=== PATIENT | male | born 1965 | race Caucasian/White ===

== ENCOUNTER 2018-04-04 20:20 | Inpatient (IN) | payer BC ==
[~2018-04-04] VITALS: Ht 182.9 cm; Wt 103.0 kg
[~2018-04-04 20:20] MED LIST: CHLO10CA PO; LORA-259 PO
[2018-04-04 20:35] VITALS: BP 134/97
--- NOTE | 2018-04-04 20:35 | NUR ---
SUCCESSFUL INTUBATION WAS DONE AT THIS TIME WITH 7.5 ETT 23 AT THE LIP. ETCO2 HAD POSITIVE COLOR CHANGE AND AUDIBLE BILATERAL BREATH SOUNDS HEARD. PT IS ON AC 12, 500 100% +5. SUCTION MODERATE AMOUNT OF THICK FROTHY WHITE SECRETIONS. VENT PLUGGED INTO RED OUTLET WITH AMBU BAG AT BEDSIDE. ALARMS ARE AUDIBLE. NO RESP DISTRESS AT THIS TIME. WILL CONT TO MONITOR PT. Addendum: 04/04/18 at 2108 by SERENA COLEMAN RT Amended: Links added.
--- NOTE | 2018-04-04 20:50 | NUR ---
CALLED POSION CONTROL. "WE WILL FOLLOW UP"
--- NOTE | 2018-04-04 20:54 | NUR ---
ADMITTED OBTUNDED/UNRESPONSIVE . 2034iNTUBATED BY DR. MARIE ,PRE MEDICATED WITH 30 MG. ETOMIDATE AND 100 MG. SUCCYNOLCHOLINE.OET 7.5 @ 23 CM @ LIPS. PLACED ON AC=12,QR=741,100% FIO2,PEEP=5
[2018-04-04] MEDS ORDERED: PROPOFOL 100 ML ONE (21:01)
[2018-04-04 21:14] LABS: BASOPHILS # (AUTO) 0.1 /CMM (0.0-0.2); BASOPHILS % (AUTO) 1.3 % (0.0-2.0); EOSINOPHILS % (AUTO) 2.5 % (0.0-6.0); HEMATOCRIT 41 % (39-51); HEMOGLOBIN 14.2 g/dL (13.5-17.5); LYMPHOCYTES # (AUTO) 2.4 /CMM (0.8-4.8); LYMPHOCYTES % (AUTO) 38.9 % (20.0-44.0); MEAN CORPUSCULAR HGB CONC 35 g/dl (31.0-36.0); MEAN CORPUSCULAR VOLUME 100 fL (80-96); MONOCYTES # (AUTO) 0.5 /CMM (0.1-1.30); MONOCYTES % (AUTO) 7.9 % (2.0-12.0); NEUTROPHILS # (AUTO) 3.1 /CMM (1.8-8.9); NEUTROPHILS % (AUTO) 49.4 % (43.0-81.0); PLATELET COUNT (AUTO) 247 /CMM (150-450); RED BLOOD CELL COUNT(AUTO) 4.09 MIL/uL (4.5-6.0); WHITE BLOOD COUNT (AUTO) 6.3 K/uL (4.3-11.0)
[2018-04-04 21:18] LABS: CALCIUM, SERUM 8.8 mg/dL (8.5-10.1); POTASSIUM 3.8 mmol/L (3.5-5.1)
[2018-04-04 21:25] LABS: ALBUMIN 3.3 g/dL (3.4-5.0); BILIRUBIN,DIRECT 0.1 mg/dL (0.0-0.2); BILIRUBIN,TOTAL 0.4 mg/dL (0.2-1.0); TOTAL PROTEIN, SERUM 7.3 g/dL (6.4-8.2)
[2018-04-04 21:27] LABS: SALICYLATE 2.5 mg/dL (2.8-20.0)
[2018-04-04] MEDS ORDERED: PROPOFOL 100 ML IV PRN (21:30)
[2018-04-04 21:34] LABS: THYROID STIMULATING HORMONE 2.713 uIU/mL (0.358-3.74)
[2018-04-04 22:19] LABS: APPEARANCE,URINE Clear (CLEAR); BILIRUBIN,URINE Negative (NEGATIVE); BLOOD, URINE Negative Ery/uL (NEGATIVE); COLOR,URINE Yellow (YELLOW); KETONES,URINE Negative (NEGATIVE); LEUKOCYTE ESTERASE ,URINE Negative (NEGATIVE); NITRITE, URINE Negative (NEGATIVE); PH,URINE 6.5 (5.0-8.0); PROTEIN,URINE Negative (NEGATIVE); UGLUCOSE 100 MG/DL mg/dL (NEGATIVE); UROBILINOGEN,URINE 0.2 EU/dL (0.2)
[2018-04-04 22:59] LABS: ABG BASE EXCESS -3.8 mmol/L; ABG OXYGEN SATURATION 98.9 % (92.0-98.5); ABG PCO2 34.5 mmHg (35.0-45.0); ABG PH 7.389 (7.350-7.450); ABG PO2 223.3 mmHg (75.0-100.0); AaDO2 455.2 mmHg; COHb 0.9 % (0.5-1.5); MetHb 0.7 % (0.0-1.5); O2Hb 97.3 % (94.0-97.0); PEEP,BG 5 cm H2O; SITE, ABG Right Radial; VENT MODE, BG AC 12; VT, ABG 500 mL
[2018-04-04 23:00] VITALS: BP 130/84
[2018-04-04] MEDS ORDERED: IV NS 0.9% 1,000 ML IV PRN ×2 (23:19→23:38)
[2018-04-04] MEDS ORDERED: MAGNESIUM HYDROXIDE 30 ML UDC PO PRN (23:30)
[2018-04-04] MEDS ORDERED: MAG HYDROX/AL HYDROX/SIMETH 30 ML UDC PO PRN (23:30)
[2018-04-04] MEDS ORDERED: ONDANSETRON HCL/PF 4 MG/2 ML VIAL IVP PRN (23:30)
[2018-04-04] MEDS ORDERED: Z GUARD REMEDY 2 OZ OINT TP PRN (23:30)
--- NOTE | 2018-04-04 23:43 | NUR ---
SPOKE TO POISON CONTROL GAVE SET OF VITALS AND TOXICOLOGY INFO OVER PHONE
--- NOTE | 2018-04-04 23:48 | NUR ---
ELECTRONIC COMPONENTS ASSEMBLER: RECEIVED S/P ORALLY INTUBATED PT FROM ER FOR DX OF AMS. VENT SETTINGS ORDERED AND TOLERATING WELL. SEDATED ON DIPRIVAN DRIP AT 50MCG/KG/MIN, WITHDRAWS TO PAIN STIMULI. NO S/S OF IV INFILTRATION. SR ON GAS CONTROLLER. AFEBRILE. OGT CLAMPED AT THIS TIME. PER ER REPORT, HAD EPISODE OF SMALL AMT. OF YELLOWISH EMESIS ENROUTE TO ICU. HOB AT 35 DEGREES. F/C PATENT AND INTACT DRAINING LARGE AMT. OF YELLOW URINE TO GRAVITY. ALSO RECEIVED WT BILAT. SOFT WRIST RESTRAINTS TO PREVENT SELF EXTUBATION. SKIN AND CIRCULATION WNL. SAFETY AND ASPIRATION PRECAUTION NOTED. WILL CONTINUE TO MONITOR.
[2018-04-04] MEDS ORDERED: NALOXONE HCL 0.4 MG/ML AMPUL IV STA (23:56)
[2018-04-04 23:58] VITALS: BP 127/81
[2018-04-05] VITALS (62 sets, daily range): BP systolic 66–203; BP diastolic 34–97
[2018-04-05] MEDS ORDERED: IV NS 0.9% 1,000 ML BAG IV PRN
[2018-04-05] MEDS ORDERED: ENOXAPARIN SODIUM 40 MG/0.4 ML DISP.SYRIN SQ ONE
[2018-04-05] MEDS ORDERED: PROPOFOL 100 ML IV PRN
--- NOTE | 2018-04-05 00:08 | NUR ---
FRENCH FOLDER: CALLED POISON CONTROL AT [phone] AND SPOKE WT INITA. RELAYED CURRENT VITAL SIGNS AND ADMISSION ORDERS AND SAID TO CONTINUE SUPPORTIVE CARE.
--- NOTE | 2018-04-05 00:15 | NUR ---
RAG WILLOW OPERATOR: VENKAT CALLED AND UPDATED PT. STATUS AND SAID SHE WILL BRING LIST OF MED IN A.M.
[2018-04-05] MEDS ORDERED: NALOXONE HCL 0.4 MG/ML AMPUL ONE (00:16)
--- NOTE | 2018-04-05 00:30 | NUR ---
MANAGER SAFE: JHON HART WAS ASKED IF OK TO CONNECT OGT TO LIS PT HAD EPISODE OF EMESIS PER E.R. EN ROUTE TO ICU. MAKE UP OPERATOR HELPER SAID AGREED. NOTED AND CARRIED OUT.
[2018-04-05] MEDS: PROPOFOL 100 ML IV PRN ×4 (00:45→09:41)
--- NOTE | 2018-04-05 00:45 | NUR ---
SECURITY SYSTEM TECHNICIAN: RECEIVED ORDER FROM JHON HART TO GIVE NS X 1L BOLUS FOR LOW BP.
[2018-04-05] MEDS ORDERED: IV NS 0.9% 1,000 ML IV ONE ×2 (01:00→02:00)
[2018-04-05] MEDS ORDERED: Thiamine 100 MG/ML VIAL ONE (01:21)
[2018-04-05] MEDS: Thiamine 100 MG in IV D5W 50 ML IV SCH (01:23)
--- NOTE | 2018-04-05 01:40 | NUR ---
LEAD SOFTWARE ARCHITECT: NOTIFIED JHON HART OF STILL LOW BP AFTER FIRST NS BOLUS WT NEW ORDER TO GIVE ANOTHER 1L. NOTED AND CARRIED OUT.
--- NOTE | 2018-04-05 02:45 | NUR ---
JACK MACHINE OPERATOR: 2ND NS BOLUS ADMINISTERED WT GOOD EFFECT (SBP ABOVE 90). WILL CONTINUE TO MONITOR.
[2018-04-05] MEDS: LORAZEPAM INJ 2 MG/ML VIAL IV PRN ×3 (03:35→20:46)
[2018-04-05 05:00] LABS: BASOPHILS # (AUTO) 0.1 /CMM (0.0-0.2); BASOPHILS % (AUTO) 1.7 % (0.0-2.0); EOSINOPHILS % (AUTO) 2.9 % (0.0-6.0); HEMATOCRIT 37 % (39-51); HEMOGLOBIN 12.8 g/dL (13.5-17.5); LYMPHOCYTES # (AUTO) 1.7 /CMM (0.8-4.8); LYMPHOCYTES % (AUTO) 35.9 % (20.0-44.0); MEAN CORPUSCULAR HGB CONC 35 g/dl (31.0-36.0); MEAN CORPUSCULAR VOLUME 100 fL (80-96); MONOCYTES # (AUTO) 0.3 /CMM (0.1-1.30); MONOCYTES % (AUTO) 6.7 % (2.0-12.0); NEUTROPHILS # (AUTO) 2.4 /CMM (1.8-8.9); NEUTROPHILS % (AUTO) 52.8 % (43.0-81.0); PLATELET COUNT (AUTO) 234 /CMM (150-450); WHITE BLOOD COUNT (AUTO) 4.6 K/uL (4.3-11.0)
[2018-04-05 05:07] LABS: ALBUMIN 2.8 g/dL (3.4-5.0); BILIRUBIN,DIRECT 0.1 mg/dL (0.0-0.2); BILIRUBIN,TOTAL 0.3 mg/dL (0.2-1.0); CALCIUM, SERUM 7.6 mg/dL (8.5-10.1); CREATININE 0.8 mg/dL (0.6-1.3); MAGNESIUM 1.8 mg/dL (1.8-2.4); PHOSPHORUS 3.7 mg/dL (2.5-4.9); POTASSIUM 3.9 mmol/L (3.5-5.1); TOTAL PROTEIN, SERUM 6.2 g/dL (6.4-8.2)
--- NOTE | 2018-04-05 06:20 | NUR ---
HYDROCRANE OPERATOR: CONTINUE ON IVF NS AT 125ML/HR AND DIPRIVAN AT 70MCG/KG/MIN. GIVEN ATIVAN X 1 DURING THE SHIFT WT GOOD EFFECT. SAFETY PRECAUTION NOTED AT ALL TIMES.
--- NOTE | 2018-04-05 07:15 | NUR ---
ASSUMED CARE OF PT AT THIS TIME. REPORT RECEIVED FROM TAMIE LANG FOR KARAN. PT IN BED 253, INTUBATED ON VENT AT ORDERED SETTINGS, SEDATED WITH PROPOFOL DRIP RUNNING AT 80MCG/KG/HR. PERRLA. SHOWING SR ON TELE. LAC AND RAC PIVS PATENT, NO S/SX INFECTION. GODFREY CATH IN PLACE, DRAINING CLEAR YELLOW URINE TO GRAVITY. NGT TO LOW INTERMITTENT SUCTION. VELMA SOFT WRIST RESTRAINTS ON FOR PREVENTION OF SELF-EXTUBATION SECONDARY TO AGITATION. SKIN WARM DRY, INTACT.
--- NOTE | 2018-04-05 08:04 | NUR ---
RT NOTE PT RCVD ORALLY INTUBATED VIA ETT #7.5, 23CM @ THE LIP ON THE VENT WITH NOTED SETTINGS, AC 12,500,40% PEEP 5. BILATERAL B/S HEARD ON AUSCULTATION. PT IS SEDATED. SUCTIONED LARGE AMOUNT OF FROTHY SECRETIONS . NO RESPIRATORY DISTRESS NOTED AT THIS TIME. ALARMS ARE SET AND AUDIBLE, VENT PLUGGED INTO RED OUTLET. AMBU BAG BEDSIDE. WILL CONTINUE TO MONITOR CLOSELY Addendum: 04/05/18 at 0956 by EDWARD MCKINNON RT PT FIO2 IS CURRENTLY 60% INCORRECT DOCUMENTATION
[2018-04-05] MEDS: IV NS 0.9% 1,000 ML IV PRN ×2 (08:26→21:31)
[2018-04-05] MEDS: FOLIC ACID 1 MG TABLET PO SCH (08:26)
[2018-04-05] MEDS: PANTOPRAZOLE 40 MG VIAL IV SCH (08:26)
--- NOTE | 2018-04-05 08:51 | NUR ---
DR LANG AT BEDSIDE
--- NOTE | 2018-04-05 08:57 | NUR ---
DR SHEIKH AT BEDSIDE
[2018-04-05] MEDS ORDERED: THIAMINE HCL 100 MG TABLET PO SCH (09:00)
--- NOTE | 2018-04-05 09:00 | NUR ---
PT CURRENTLY ON 85MCG/KG/MIN PROPOFOL TO MAINTAIN ADEQUATE SEDATION. PER DR LANG, GRADUALLY DECREASE PROPOFOL IN EFFORTS TO PREPARE PATIENT FOR SPONTANEOUS BREATHING TRIAL. Addendum: 04/05/18 at 0930 by NATIVIDAD ANNE RN RATE DECREASED TO 80 MCG/KG/MIN
--- NOTE | 2018-04-05 09:30 | NUR ---
PT REMAINS SEDATED ON 80MCG/KG/MIN, RATE DECREASED TO 75MCG/KG/MIN
[2018-04-05] MEDS ORDERED: ETOMIDATE 2 MG/ML VIAL ONE (09:52)
--- NOTE | 2018-04-05 10:25 | NUR ---
RT NOTE PLACED PT ON SIMV DUE TO DR ORDERS, WILL MONITOR CLOSELY ABG TO FOLLOW
[2018-04-05] MEDS: ACETAMINOPHEN 325 MG TABLET PO PRN (10:48)
--- NOTE | 2018-04-05 10:50 | NUR ---
PT FEELS HOT TO THE TOUCH AT THIS TIME. TEMP ZXRAW=031.8 AXILLARY. MEDICATED WITH TYLENOL 650MG VIA NGT; SUCTION TURNED OFF.
--- NOTE | 2018-04-05 10:55 | NUR ---
UPDATED PTS , VENKAT, OF PTS STATUS AND PLAN OF CARE. VENKAT STATES SHE WILL BE IN TO VISIT IN A FEW HOURS.
[2018-04-05 11:20] LABS: ABG BASE EXCESS -1.5 mmol/L; ABG PCO2 31.5 mmHg (35.0-45.0); ABG PH 7.452 (7.350-7.450); ABG PO2 82.2 mmHg (75.0-100.0); AaDO2 166.8 mmHg; COHb 0.3 % (0.5-1.5); MetHb 0.6 % (0.0-1.5); O2Hb 95.1 % (94.0-97.0); PEEP,BG 5 cm H2O; SITE, ABG Left Radial; VENT MODE, BG SIMV PS 12; VT, ABG 500 mL
--- NOTE | 2018-04-05 11:30 | NUR ---
ABG RESULTS REVIEWED BY DR LANG. RECEIVED VERBAL ORDER FOR EXTUBATION LONG PT IS OFF PROPOFOL. RT EDWARD NOTIFIED.
--- NOTE | 2018-04-05 11:50 | NUR ---
RT NOTE PER MD ORDER AND POST ABG RESULTS, EXTUBATED PT, PLACED PT ON NASAL CANULA AT 4 LPM WILL TITRATE, BILATERAL B/S HEARD PT AWAKE ALERT, NO DISTRESS NOTED, WILL MONITOR CLOSELY
--- NOTE | 2018-04-05 11:56 | NUR ---
PT TOLERATING WELL S/P EXTUBATION, SATURATING 97% ON 4LPM VIA NC. PT IS A/OX4, ABLE TO MAKE ALL NEEDS KNOWN AND FOLLOW COMMANDS. PT REQUESTED EPIFANIO RUSH BE D/C'D AND IS CURRENTLY USING A URINAL. UPDATED PT'S , VENKAT. Addendum: 04/05/18 at 1312 by NATIVIDAD ANNE RN NG TUBE REMOVED AT THE SAME TIME AT EXTUBATION, TIP INTACT AND TOLERATED WELL.
--- NOTE | 2018-04-05 12:42 | NUR ---
AT BEDSIDE. PT VOIDED IN URINAL. VSS.
--- NOTE | 2018-04-05 13:29 | NUR ---
SPOKE WITH POISON CONTROL PHARMACIST JAVIER, UPDATED ON PT CONDITION. NO NEW RECOMMENDATIONS FROM POISON CONTROL.
--- NOTE | 2018-04-05 13:32 | NUR ---
OK PER DR SHEIKH TO PLACE PT ON REGULAR DIET TO ADVANCE TOLERATED. PT TOLERATING PO INTAKE OF WATER AND ICE CHIPS, GIVEN JELLO. PT REPORTS THROAT PAIN, ADVISED PT AND TO CONTINUE SOFT FOODS AT THIS TIME.
--- NOTE | 2018-04-05 15:31 | NUR ---
PT C/O CRAMPING IN LEGS AND BACK PAIN. PT REQUESTING TO SIT IN CHAIR AT THE BEDSIDE. ASSISTED WITH 1 ASSIST FROM BED TO CHAIR, TOLERATED WELL. CONTACTED DR SHEIKH REGARDING PAIN MANAGEMENT PRN TYLENOL IS NOT DUE YET AND PT'S REQUESTS NO NARCOTICS. RECEIVED TELE ORDER FOR MOTRIN 600MG TID PRN.
--- NOTE | 2018-04-05 15:55 | NUR ---
2L O2 VIA NC REMOVED WHILE PT WAS SITTING IN CHAIR AT BEDSIDE. TOLERATING WITH SAT 96% OR GREATER.
[2018-04-05] MEDS: IBUPROFEN 600 MG TABLET PO PRN ×2 (15:59→22:40)
--- NOTE | 2018-04-05 16:44 | NUR ---
PT REPORTED FEELING SHAKY AND ANXIOUS. ATIVAN 1MG IV PRN ADMINISTERED ORDERED. RESTING QUIETLY IN BED, TOLERATING PO INTAKE OF JUICE, WATER, AND JELLO. VSS, NO SUPPLEMENTAL O2 REQUIRED TO MAINTAIN SAT ABOVE 96%
--- NOTE | 2018-04-05 17:51 | NUR ---
Patient lives locally with spouse. Prior to admission, he was ambulatory and independent with adl's. Has hx of alcohol and opioid abuse and recently was released from a treatment center. Patient is now admitted to ICU with possible overdose on clonidine and intoxication. Will refer to social human services assistants for psychosocial eval and substance abuse resources. Addendum: 04/05/18 at 1752 by KUNAL KEE RN Amended: Links added.
--- NOTE | 2018-04-05 18:22 | NUR ---
RESTING QUIETLY, VSS, NAD NOTED. DOZING INTERMITTENTLY IN BED WITH AT BEDSIDE.
--- NOTE | 2018-04-05 19:30 | NUR ---
ICU/RN. RECEIVED PT AWAKE ALERT AND OX3.ON ROOM AIR,RESP REGULAR AND EVEN,SATURATION =94%.C/O SORE THROAT AND STOMACH ACHE.WANTING ATIVAN BUT EXPLAINED TO PT THAT MED IS NOT DUE,STATES"I'M A LITTLE BIT SHAKY".
[2018-04-05] MEDS ORDERED: ENOXAPARIN SODIUM 40 MG/0.4 ML DISP.SYRIN SQ SCH (22:00)
[2018-04-06] VITALS (16 sets, daily range): BP systolic 119–158; BP diastolic 66–103
[2018-04-06] MEDS: IBUPROFEN 600 MG TABLET PO PRN (00:09)
--- NOTE | 2018-04-06 00:09 | NUR ---
ICU/RN GIVEN NORCO5/325 PO FOR C/O EXCRUCIATING BACK PAIN(CHRONIC)ACCORDING TO PATIENT.
[2018-04-06] MEDS: Thiamine 100 MG in IV D5W 50 ML IV SCH (00:12)
--- NOTE | 2018-04-06 01:40 | NUR ---
ICU/RN. PT ASLEEP,RESPIRATIONS REGULAR AND EVEN.MONITOR SHOWS SINU RHYTHM.
[2018-04-06] MEDS: LORAZEPAM INJ 2 MG/ML VIAL IV PRN (03:14)
[2018-04-06] MEDS: ACETAMINOPHEN 325 MG TABLET PO PRN (04:22)
[2018-04-06] MEDS: HYDROCODONE/APAP 5/325MG 1 EACH TABLET PO PRN ×2 (04:28)
[2018-04-06] MEDS: IV NS 0.9% 1,000 ML IV PRN (06:47)
--- NOTE | 2018-04-06 07:03 | NUR ---
ICU/RN SLEPT WELL AFTER TYLENOL GIVEN.VITAL SIGNS STABLE.MAINTAINING SAT OF 93-97%.
--- NOTE | 2018-04-06 07:30 | NUR ---
INITIAL PT RESTING QUIETLY EASILY AROUSED VITAL SIGNS TAKEN STABLE MONITORED 66 NSR PT GIVEN BREAKFAST PT ON ROOM AIR NO DISTRESS AFTER EXTUBATION YESTERDAY AT 1600 ABG DONE STABLE. PT IN SEMI FOWLERS POSITION BED IN LOW POSITION CALL MURRAY NEXT TO PT WILL CONTINUE TO MONITOR
[2018-04-06] MEDS: PANTOPRAZOLE 40 MG VIAL IV SCH (07:47)
[2018-04-06 08:12] LABS: ABG BASE EXCESS 1.9 mmol/L; ABG OXYGEN SATURATION 94.4 % (92.0-98.5); ABG PCO2 36.6 mmHg (35.0-45.0); ABG PH 7.461 (7.350-7.450); ABG PO2 75.3 mmHg (75.0-100.0); AaDO2 30.6 mmHg; COHb 0.3 % (0.5-1.5); MetHb 0.7 % (0.0-1.5); O2Hb 93.5 % (94.0-97.0); SITE, ABG Left Radial; VENT MODE, BG Room Air
--- NOTE | 2018-04-06 08:13 | NUR ---
WOUND CARE CONSULT: PT NO LONGER INTUBATED AND IS INDEPENDENT WITH BED MOBILITY AND CONTINENT. SKIN IS INTACT. SOME PIGMENT IRREGULARITY NOTED TO RT SIDE OF BACK. CURRENT JOSE MANUEL SCORE IS 19. WILL SEE PRN.
[2018-04-06] MEDS: FOLIC ACID 1 MG TABLET PO SCH (08:55)
--- NOTE | 2018-04-06 10:17 | NUR ---
WOUND CARE: SKIN TEAR NOTED UNDER CHEST HAIR, PRESENT ON ADMISSION. PT STATES WAS FROM [facility] RECOMMENDATIONS MADE FOR WOUND CARE AND SKIN PROTECTION. DISCUSSED WITH NURSING STAFF. WILL SEE PRN. Addendum: 04/06/18 at 1018 by KENA REDD WNDNU Amended: Links added.
--- NOTE | 2018-04-06 10:56 | NUR ---
DISCHARGE PT DRESSED SELF BATHED USED BATH ROOM ALL PIV REMOVED WITH TIP INTACT PT HAS SKIN TEAR ON STERNIUM PLACED ZEROFORM AND MIPYLEX COVERING PT GIVEN DISCHARGE INSTRUCTIONS PT TO FOLLOW UP WITH REHAB
--- NOTE | 2018-04-06 11:41 | NUR ---
Social work note: Patient is a 52 year old male who was admitted to [facility] ICU after being found unconscious after consuming excessive amounts of alcohol. Per chart, patient has extensive history of ETOH abuse. Social work was requested to consult for ETOH abuse. Upon social work evaluation, patient was laying in bed and accompanied by his , Simin [[phone]]. Patient presented AxOx4 and verified all information of face sheet as correct. Per patient, he had been at an inpatient detox in [place], [place] and was released from there on 03/31/2018. Patient reports to have relapsed on Monday when he drank 1/5 of gin stating it was "too much". Patient report he doesn't remember anything as he thinks he "blacked out" and then just remembers waking up in the hospital choking from being intubated. Patient denies suicidal ideation and that he drank in an attempt to harm self. Patient states he has had problems with ETOH abuse for past 20 years. Patient drink of choice is gin. When asked how much patient typically consumes he stated "too much" followed by "a fifth". Patient longest period of sobriety was 2-3 years and patient states he accomplished that by attending AA regularly and having a sponsor. Patient also acknowledges that he is well-supported by friends and family. Upon discharge, patient states he will go to [facility] [[address] [place] [address] [address], [place] [address]; ] and attend their IOP evening program from 6-9pm Monday-Monday. 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 Patient also states that he will receive transportation to [facility] by his , Simin. Patient further states that he will supplement IOP program by attending AA and get a new sponsor. agricultural service worker facilitated conversation about safety planning regarding drinking. Per patient, he states he will call a friend or his sponsor when he feels like he wants to drink. Patient will be discharging this afternoon and return home [[address] [place] [address], [place] [address]; [phone]] with his , Simin, who will provide transportation. Per Simin and patient, patient will start IOP at [facility] this evening at 5:30pm. agricultural service worker called and left a voicemail for IOP coordinator, Pat, confirming patient will be starting IOP tonight. Per Simin, she would like face sheet updated to reflect that patient primary insurance is [employer] and his secondary is [employer]. agricultural service worker has made admitting department aware who will follow-up with Simin. Addendum: 04/06/18 at 1236 by JEMAL HEAD Additional information: agricultural service worker received confirmation from admitting that patient insurance has been updated and Simin has been made aware. agricultural service worker also offered substance abuse resources to patient and , however, both refused stating they are well-aware of available resources and equipped to locate new resources if needed.
--- NOTE | 2018-04-06 11:56 | NUR ---
PT LEFT WITH SPOUSE VENKAT WILL
[2018-04-07] MEDS ORDERED: THIAMINE HCL 100 MG TABLET PO SCH (09:00)
== END 2018-04-06 11:55 | disposition home or self-care (01) | DRG 917 ==
LOC: ER 20:23 → ICU 22:19
PROVIDERS: ADMIT Nurse Practitioner Acute Care; ATTEND Nurse Practitioner Acute Care
PROC: 5A1945Z Respiratory Ventilation, 24-96 Consecutive Hours (ICD-10-PCS; principal; 2018-04-04)
PROC: 0BH17EZ Insertion of Endotracheal Airway into Trachea, Via Natural or Artificial Opening (ICD-10-PCS; principal; 2018-04-04)
DX: T46.5X1A Poisoning by other antihypertensive drugs, accidental (unintentional), initial encounter (principal); G92 Toxic encephalopathy; J96.01 Acute respiratory failure with hypoxia; E87.1 Hypo-osmolality and hyponatremia; E46 Unspecified protein-calorie malnutrition; Y90.8 Blood alcohol level of 240 mg/100 ml or more; Y92.89 Other specified places as the place of occurrence of the external cause; F10.229 Alcohol dependence with intoxication, unspecified; T51.0X1A Toxic effect of ethanol, accidental (unintentional), initial encounter; F17.200 Nicotine dependence, unspecified, uncomplicated; Z79.899 Other long term (current) drug therapy; R74.0 Nonspecific elevation of levels of transaminase and lactic acid dehydrogenase [LDH]; E83.119 Hemochromatosis, unspecified; F32.9 Major depressive disorder, single episode, unspecified; E87.6 Hypokalemia
CPT/HCPCS: 31720; 36415; 36600; 70450-TC; 71045-TC; 76705-TC; 80048-TC; 80061-TC; 80076-TC; 80305; 81000-TC; 82803-TC; 83735-TC; 84100-TC; 84443-TC; 85025-TC; 87081-TC; 99082-TC; C9113; G0378; G0480; J1650; J2060; J2310; J3411; J3490; J7030; J7060

== ENCOUNTER 2018-06-30 17:36 | Emergency (ER) | payer BC ==
[~2018-06-30] VITALS: Ht 182.9 cm; Wt 108.9 kg
--- NOTE | 2018-06-30 17:54 | NUR ---
BIB SELF W C/O "Blurred vision, thirst,dry mouth x3wks went to cousins house and I checked my sugar it was 600". ALSO C/O DIZZINESS. TO ER BED 4, HOOKED TO MONITOR, CHANGED TO GOWN, AWAITING MD JOHNSON.
--- NOTE | 2018-06-30 18:10 | NUR ---
DR DUBOSE AT BEDSIDE FOR EVAL.
[2018-06-30 18:27] LABS: BASOPHILS % (AUTO) 0.7 % (0.0-2.0); HEMATOCRIT 42 % (39-51); HEMOGLOBIN 14.3 g/dL (13.5-17.5); LYMPHOCYTES # (AUTO) 1.4 /CMM (0.8-4.8); LYMPHOCYTES % (AUTO) 28.2 % (20.0-44.0); MEAN CORPUSCULAR HGB CONC 34 g/dl (31.0-36.0); MEAN CORPUSCULAR VOLUME 95 fL (80-96); MONOCYTES # (AUTO) 0.3 /CMM (0.1-1.30); MONOCYTES % (AUTO) 6.1 % (2.0-12.0); NEUTROPHILS # (AUTO) 3.2 /CMM (1.8-8.9); PLATELET COUNT (AUTO) 151 /CMM (150-450); WHITE BLOOD COUNT (AUTO) 5.1 K/uL (4.3-11.0)
[2018-06-30] MEDS ORDERED: IV NS 0.9% 1,000 ML BAG IV ONE (18:30)
[2018-06-30 18:43] LABS: ALBUMIN 3.8 g/dL (3.4-5.0); BILIRUBIN,DIRECT 0.2 mg/dL (0.0-0.2); BILIRUBIN,TOTAL 0.5 mg/dL (0.2-1.0); CALCIUM, SERUM 8.7 mg/dL (8.5-10.1); CREATININE 1.2 mg/dL (0.6-1.3); POTASSIUM 4.5 mmol/L (3.5-5.1); TOTAL PROTEIN, SERUM 7.1 g/dL (6.4-8.2)
--- NOTE | 2018-06-30 18:48 | NUR ---
BS 605, MADE AWARE
[2018-06-30] MEDS ORDERED: INSULIN REGULAR, HUMAN 100 UNIT/ML 10 ML VIAL ONE (18:57)
[2018-06-30] MEDS ORDERED: INSULIN REGULAR, HUMAN 100 UNIT/ML 10 ML VIAL SQ ONE (19:00)
--- NOTE | 2018-06-30 19:16 | NUR ---
REPORT GIVEN TO BERNICE LANG FOR KARAN
[2018-06-30 19:57] VITALS: BP 140/81
== END 2018-06-30 19:58 | disposition home or self-care (01) ==
LOC: ER 17:41
DX: R73.9 Hyperglycemia, unspecified (principal); I10 Essential (primary) hypertension; F41.9 Anxiety disorder, unspecified; F32.9 Major depressive disorder, single episode, unspecified; Z79.899 Other long term (current) drug therapy
CPT/HCPCS: 36415; 80048; 80076; 82962; 85025; 96360; 96372; 99283; J1815; J7030

== ENCOUNTER 2018-08-05 22:03 | Emergency (ER) | payer BC ==
[~2018-08-05] VITALS: Ht 185.4 cm; Wt 90.7 kg
--- NOTE | 2018-08-05 22:10 | NUR ---
ALLI GOSS FROM HOME. PATIENT RECENTLY HAD DRINK ALCOHOL. DENIES ANY DISCOMFORT AT THIS TIME. A/O X4. ABLE TO MAKE NEEDS KNOW. ASSISTED TO BED COMFORTABLY. FAMILY AT BEDSIDE.
[2018-08-05] MEDS ORDERED: ONDANSETRON HCL/PF 4 MG/2 ML VIAL ONE (22:34)
[2018-08-05] MEDS ORDERED: ONDANSETRON HCL/PF 4 MG/2 ML VIAL IVP ONE (23:00)
[2018-08-05] MEDS ORDERED: IV NS 0.9% 1,000 ML BAG IV ONE (23:00)
--- NOTE | 2018-08-05 23:00 | NUR ---
INITIATED IV LINE LAC G#20. BLOOD DRAWN BY PLATE CUTTER. INITIATED IVF ORDERED. ADMINISTERED ZOFRAN ORDERED.
[2018-08-05 23:05] LABS: BASOPHILS # (AUTO) 0.1 /CMM (0.0-0.2); BASOPHILS % (AUTO) 0.9 % (0.0-2.0); EOSINOPHILS % (AUTO) 3.3 % (0.0-6.0); HEMATOCRIT 41 % (39-51); HEMOGLOBIN 14.6 g/dL (13.5-17.5); LYMPHOCYTES # (AUTO) 2.6 /CMM (0.8-4.8); LYMPHOCYTES % (AUTO) 42.5 % (20.0-44.0); MEAN CORPUSCULAR HGB CONC 36 g/dl (31.0-36.0); MEAN CORPUSCULAR VOLUME 93 fL (80-96); MONOCYTES # (AUTO) 0.3 /CMM (0.1-1.30); MONOCYTES % (AUTO) 4.5 % (2.0-12.0); NEUTROPHILS % (AUTO) 48.8 % (43.0-81.0); PLATELET COUNT (AUTO) 162 /CMM (150-450); RED BLOOD CELL COUNT(AUTO) 4.42 MIL/uL (4.5-6.0); WHITE BLOOD COUNT (AUTO) 6.1 K/uL (4.3-11.0)
[2018-08-05 23:11] LABS: CALCIUM, SERUM 8.4 mg/dL (8.5-10.1); CREATININE 0.8 mg/dL (0.6-1.3); POTASSIUM 3.6 mmol/L (3.5-5.1)
[2018-08-05 23:19] LABS: ALBUMIN 3.8 g/dL (3.4-5.0); BILIRUBIN,DIRECT 0.1 mg/dL (0.0-0.2); BILIRUBIN,TOTAL 0.5 mg/dL (0.2-1.0); TOTAL PROTEIN, SERUM 7.2 g/dL (6.4-8.2)
--- NOTE | 2018-08-05 23:53 | NUR ---
VENKAT () CONTACT INFORMATION:
--- NOTE | 2018-08-06 01:58 | NUR ---
NOTED 800ML CLEAR YELLOW URINE OUTPUT. PATIENT BACK TO SLEEP ON BED. KEPT COMFORTABLE WITH WARM BLANKET. WILL CONTINUE TO MONITOR.
--- NOTE | 2018-08-06 02:38 | NUR ---
Patient is resting comfortably in bed with eyes closed. Easily aroused. VSS
--- NOTE | 2018-08-06 04:11 | NUR ---
Patient is resting comfortably in bed with eyes closed. Easily aroused. VSS
--- NOTE | 2018-08-06 05:20 | NUR ---
PT AAOX4. ABLE TO AMBULATE WITH STEADY GAIT. NO ACUTE DISTRESS NOTED AT THIS TIME.
--- NOTE | 2018-08-06 05:50 | NUR ---
Patient discharged to home in stable condition. Written and verbal after care instructions given. Patient verbalizes understanding of instruction. IV removed. Catheter intact and site benign. Pressure and 4x4 applied to site. No bleeding noted. Pt ambulatory with a steady gait. Instructed not to drive, left with .
[2018-08-06 05:51] VITALS: BP 114/75
== END 2018-08-06 05:52 | disposition home or self-care (01) ==
LOC: ER 22:05
DX: F10.129 Alcohol abuse with intoxication, unspecified (principal); R11.10 Vomiting, unspecified; E11.65 Type 2 diabetes mellitus with hyperglycemia; I10 Essential (primary) hypertension; Y90.8 Blood alcohol level of 240 mg/100 ml or more
CPT/HCPCS: 36415; 80048; 80076; 80307; 82962; 85025; 96361; 96374; 99283; J2405; J7030; G0480

== ENCOUNTER 2022-03-27 18:51 | Emergency (ER) | payer BC ==
[~2022-03-27] VITALS: Ht 185.4 cm; Wt 101.6 kg
[2022-03-27] MEDS ORDERED: IV NS 0.9% 1,000 ML BAG IV ONE (19:30)
[2022-03-27 19:55] LABS: CALCIUM, SERUM 8.6 mg/dL (8.5-10.1); CREATININE 0.8 mg/dL (0.6-1.3); POTASSIUM 3.8 mmol/L (3.5-5.1)
[2022-03-27 20:06] LABS: ALBUMIN 3.7 g/dL (3.4-5.0); BILIRUBIN,DIRECT 0.1 mg/dL (0.0-0.2); BILIRUBIN,TOTAL 0.3 mg/dL (0.2-1.0); TOTAL PROTEIN, SERUM 7.1 g/dL (6.4-8.2)
[2022-03-27 20:14] LABS: BASOPHILS % (AUTO) 0.8 % (0.0-2.0); EOSINOPHILS % (AUTO) 2.2 % (0.0-6.0); HEMATOCRIT 44 % (39-51); LYMPHOCYTES # (AUTO) 3.2 K/uL (0.8-4.8); LYMPHOCYTES % (AUTO) 51.5 % (20.0-44.0); MEAN CORPUSCULAR HGB CONC 34 g/dl (31.0-36.0); MEAN CORPUSCULAR VOLUME 100 fL (80-96); MONOCYTES # (AUTO) 0.4 K/uL (0.1-1.30); MONOCYTES % (AUTO) 6.8 % (2.0-12.0); NEUTROPHILS # (AUTO) 2.4 K/uL (1.8-8.9); NEUTROPHILS % (AUTO) 38.7 % (43.0-81.0); PLATELET COUNT (AUTO) 167 K/uL (150-450); RED BLOOD CELL COUNT(AUTO) 4.37 MIL/uL (4.5-6.0); WHITE BLOOD COUNT (AUTO) 6.2 K/uL (4.3-11.0)
--- NOTE | 2022-03-27 20:42 | NUR ---
IV removed. Catheter intact and site benign. Pressure and 4x4 applied to site. No bleeding noted.
--- NOTE | 2022-03-27 20:43 | NUR ---
Patient discharged to home in stable condition. Written and verbal after care instructions given. Patient verbalizes understanding of instruction.
[2022-03-27 20:49] VITALS: BP 148/96
== END 2022-03-27 20:50 | disposition home or self-care (01) ==
LOC: ER 19:07
DX: F10.129 Alcohol abuse with intoxication, unspecified (principal); Z71.41 Alcohol abuse counseling and surveillance of alcoholic; I10 Essential (primary) hypertension; Y90.9 Presence of alcohol in blood, level not specified
CPT/HCPCS: 99283; 96360; 85025; 80048; 80076; 36415; J7030

== ENCOUNTER 2022-05-06 15:54 | Emergency (ER) | payer BC ==
[~2022-05-06] VITALS: Ht 188 cm; Wt 111.1 kg
--- NOTE | 2022-05-06 16:05 | NUR ---
[id number] [facility], "DRANK COUPLE OF JUAN DANIEL BARRON, FAM MEMBER RECENTLY" "FELL INTO GRASS, NO HEAD TRAUMA", B
--- NOTE | 2022-05-06 16:29 | NUR ---
VENKAT [phone] " "
[2022-05-06 17:22] LABS: CREATININE 1.1 mg/dL (0.6-1.3); POTASSIUM 3.5 mmol/L (3.5-5.1)
--- NOTE | 2022-05-06 21:06 | NUR ---
Gabriela sylvester in [facility] - 05/06/22 at 2106 by PALAK Patient discharged to home in stable condition. Written and verbal after care instructions given. Patient verbalizes understanding of instruction. pI
--- NOTE | 2022-05-06 21:06 | NUR ---
Patient discharged to home in stable condition. Written and verbal after care instructions given. Patient verbalizes understanding of instruction.Picked up by . ambualted out of ED with steady gait.
[2022-05-06 21:07] VITALS: BP 107/69
== END 2022-05-06 21:07 | disposition home or self-care (01) ==
LOC: ER 15:56
DX: F10.129 Alcohol abuse with intoxication, unspecified (principal); I10 Essential (primary) hypertension; Y90.9 Presence of alcohol in blood, level not specified
CPT/HCPCS: 36415; 80048-TC

== ENCOUNTER 2022-05-17 19:34 | Inpatient (IN) | payer BC ==
[~2022-05-17] VITALS: Ht 185.4 cm; Wt 102.1 kg
--- NOTE | 2022-05-17 20:01 | NUR ---
BIBRA 89 FROM HOME C/O ETOH +TOOK UNKNOWN AMOUNT OF GABAPENTIN & TRAMADOL PER . BG 386 PER RA. pt to bed 13, placed on monitor, not in acute distress, denies sob. pending er provider akiko
[2022-05-17 21:25] LABS: BASOPHILS % (AUTO) 0.3 % (0.0-2.0); EOSINOPHILS % (AUTO) 0.9 % (0.0-6.0); HEMATOCRIT 47 % (39-51); HEMOGLOBIN 15.8 g/dL (13.5-17.5); LYMPHOCYTES # (AUTO) 4.9 K/uL (0.8-4.8); LYMPHOCYTES % (AUTO) 53.2 % (20.0-44.0); MEAN CORPUSCULAR HGB CONC 34 g/dl (31.0-36.0); MEAN CORPUSCULAR VOLUME 101 fL (80-96); MONOCYTES # (AUTO) 0.6 K/uL (0.1-1.30); MONOCYTES % (AUTO) 6.5 % (2.0-12.0); NEUTROPHILS # (AUTO) 3.6 K/uL (1.8-8.9); NEUTROPHILS % (AUTO) 39.1 % (43.0-81.0); PLATELET COUNT (AUTO) 253 K/uL (150-450); RED BLOOD CELL COUNT(AUTO) 4.62 MIL/uL (4.5-6.0); WHITE BLOOD COUNT (AUTO) 9.2 K/uL (4.3-11.0)
[2022-05-17] MEDS ORDERED: IV NS 0.9% 1,000 ML BAG IV ONE ×2 (21:30→23:00)
[2022-05-17 21:52] LABS: ALANINE AMINOTRANSFERASE 109 U/L (12-78); ALCOHOL, BLOOD 384 mg/dL (0-0); ALKALINE PHOSPHATASE 70 U/L (46-116); ASPARTATE AMINOTRANSFERASE 97 U/L (15-37); BILIRUBIN,DIRECT 0.2 mg/dL (0.0-0.2); BILIRUBIN,TOTAL 0.4 mg/dL (0.2-1.0); CARBON DIOXIDE 20 mmol/L (21-32); CHLORIDE 106 mmol/L (98-107); CREATININE 1.1 mg/dL (0.6-1.3); GLUCOSE 285 mg/dL (74-106); POTASSIUM 4.6 mmol/L (3.5-5.1); SODIUM SERUM 141 mmol/L (136-145); TOTAL PROTEIN, SERUM 7.9 g/dL (6.4-8.2); UREA NITROGEN, BLOOD 11 mg/dL (7-18)
[2022-05-17 22:03] LABS: ACETAMINOPHEN < 10 ug/ml (10-30)
--- NOTE | 2022-05-17 22:24 | NUR ---
URINE COLLECTED AND SEN TTO LAB
[2022-05-17 22:43] LABS: BILIRUBIN,URINE NEGATIVE (NEGATIVE); COLOR,URINE RED (YELLOW); LEUKOCYTE ESTERASE ,URINE NEGATIVE (NEGATIVE); NITRITE, URINE NEGATIVE (NEGATIVE); PROTEIN,URINE 2+ mg/dl (NEGATIVE); UGLUCOSE 3+ mg/dL (NEGATIVE); UROBILINOGEN,URINE 0.2 EU/dL (0.2)
[2022-05-17 23:18] LABS: RBC,URINE TOO NUMEROUS TO COUN /HPF (0-2)
[2022-05-17 23:20] LABS: BACTERIA,URINE None seen /HPF (None Seen); SQUAMOUS EPITHELIAL CELL,UR 0-2 /HPF (None Seen); WBC,URINE NONE SEEN /HPF (0-3)
--- NOTE | 2022-05-18 02:30 | NUR ---
per CT result. pt possible has ruptured bladder. new orders for CT ordered
[2022-05-18] MEDS ORDERED: LIDOCAINE 2% JEL UROJET 10 ML MM ONE (02:47)
[2022-05-18] MEDS ORDERED: ONDANSETRON HCL/PF 4 MG/2 ML VIAL ONE ×2 (03:04→09:08)
[2022-05-18] MEDS ORDERED: PIPERACILLIN /TAZOBACTAM 3.375 G VIAL IV ONE (05:37)
--- NOTE | 2022-05-18 05:49 | NUR ---
COVID SWAB SENT TO LAB
[2022-05-18] MEDS ORDERED: PIPERACILLIN /TAZOBACTAM 3.375 G in IV D5W 50 ML IV ONE (06:00)
[2022-05-18] MEDS ORDERED: IV NS 0.9% 1,000 ML BAG IV ONE (06:00)
[2022-05-18 06:23] LABS: CALCIUM, SERUM 8.5 mg/dL (8.5-10.1); CREATININE 0.9 mg/dL (0.6-1.3); POTASSIUM 4.7 mmol/L (3.5-5.1)
--- NOTE | 2022-05-18 06:50 | NUR ---
back from CT
--- NOTE | 2022-05-18 07:15 | NUR ---
PATIENT RECEIVED WITH GODFREY CATHETER INSERTED.
[2022-05-18 08:51] LABS: BASOPHILS % (AUTO) 0.2 % (0.0-2.0); HEMATOCRIT 46 % (39-51); LYMPHOCYTES # (AUTO) 1.7 K/uL (0.8-4.8); LYMPHOCYTES % (AUTO) 19.2 % (20.0-44.0); MEAN CORPUSCULAR HGB CONC 33 g/dl (31.0-36.0); MEAN CORPUSCULAR VOLUME 103 fL (80-96); MONOCYTES # (AUTO) 0.4 K/uL (0.1-1.30); MONOCYTES % (AUTO) 4.1 % (2.0-12.0); NEUTROPHILS # (AUTO) 6.7 K/uL (1.8-8.9); NEUTROPHILS % (AUTO) 76.5 % (43.0-81.0); PLATELET COUNT (AUTO) 227 K/uL (150-450); RED BLOOD CELL COUNT(AUTO) 4.47 MIL/uL (4.5-6.0); WHITE BLOOD COUNT (AUTO) 8.8 K/uL (4.3-11.0)
[2022-05-18] MEDS ORDERED: ONDANSETRON HCL/PF 4 MG/2 ML VIAL IV ONE (09:30)
[2022-05-18] MEDS ORDERED: CLON0.1T PO (10:12)
[2022-05-18] MEDS ORDERED: TRAM50TA2 PO (10:12)
[2022-05-18] MEDS ORDERED: GLIP5TAB13 PO (10:12)
[2022-05-18] MEDS ORDERED: METF-440 PO (10:12)
[2022-05-18] MEDS ORDERED: LOSA100T31 PO (10:12)
[2022-05-18] MEDS ORDERED: ACETAMINOPHEN ES 500 MG TABLET PO ONE (10:30)
[2022-05-18] MEDS ORDERED: ACETAMINOPHEN ES 500 MG TABLET ONE (10:34)
[2022-05-18] MEDS ORDERED: ONDANSETRON HCL/PF 4 MG/2 ML VIAL IVP PRN (12:00)
[2022-05-18] MEDS ORDERED: glipiZIDE 5 MG TABLET PO PRN (12:00)
[2022-05-18] MEDS ORDERED: Z GUARD REMEDY 4 OZ OINT TP PRN (12:00)
[2022-05-18] MEDS ORDERED: CEFTRIAXONE 1 G in IV D5W 50 ML IV SCH ×2 (12:00→17:00)
[2022-05-18] MEDS ORDERED: MAG HYDROX/AL HYDROX/SIMETH 30 ML UDC PO PRN (12:00)
[2022-05-18] MEDS ORDERED: TRAMADOL HCL 50 MG TABLET PO PRN (12:00)
[2022-05-18] MEDS ORDERED: CLONIDINE HCL 0.1 MG TABLET PO PRN (12:00)
[2022-05-18] MEDS ORDERED: ACETAMINOPHEN 325 MG TABLET PO PRN (12:00)
--- NOTE | 2022-05-18 13:11 | NUR ---
PATIENT IS CALM AND COOPERATIVE, AT BEDSIDE WAITING FOR ROOM
--- NOTE | 2022-05-18 13:59 | NUR ---
ROOM 324-1
[2022-05-18] MEDS ORDERED: GABA600T12 PO (14:14)
--- NOTE | 2022-05-18 14:28 | NUR ---
MOVED TO INPATIENT ROOM SAFELY PER PROTOCOL
--- NOTE | 2022-05-18 15:10 | NUR ---
MS BEHAVIOR CLINICIAN NOTES PT ADMITTED TO UNIT VIA GURNEY AT 1500 WITH DIAGNOSIS OF ALCOHOL INTOXICATION AND CYSTITIS. A/O X 4, ABLE TO MAKE NEEDS KNOWN. C/O PAIN IN THE MID-DISTAL OF THE ABDOMEN. IV ACCESS ON THE RAC #20G, SL, C/D/I. WITH GODFREY DRAINING VIA GRAVITY WITH DRAINING ORANGE URINE WITH TINGE OF BLOOD. ON ROOM AIR, TOLERATING WELL. NEEDS ATTENDED. SAFETY MEASURES IN PLACE: BED LOCKED AND IN LOWEST POSITION, TRAY TABLE AND CALL LIGHT WITHIN EASY REACH, SIDE RAILS X 2. WILL CONTINUE TO MONITOR.
[2022-05-18] MEDS: MORPHINE SULFATE INJ 2 MG/ML DISP.SYRIN IV PRN ×2 (15:53→19:58)
--- NOTE | 2022-05-18 16:00 | NUR ---
RN NOTES PT C/O DMID-DISTAL ABDOMINAL PAIN, MORPHINE 1MG/0.5ML IV PRN GIVEN AT 1553. WILL CONTINUE TO MONITOR.
[2022-05-18] MEDS ORDERED: QUET200T PO (16:36)
--- NOTE | 2022-05-18 17:05 | NUR ---
RN NOTES ROCEPHIN 1G NOT GIVEN AT 1700, ROCEPHIN IG IV GIVEN AT 1604.
[2022-05-18 18:39] VITALS: BP 131/71
--- NOTE | 2022-05-18 18:45 | NUR ---
MS RN CLOSING NOTES PT RESTING IN BED. A/O X 4, ABLE TO MAKE NEEDS KNOWN. NO C/O PAIN AT THIS TIME. IV ACCESS ON THE RAC #20G, SL, C/D/I. MAINTAINED GODFREY DRAINING VIA GRAVITY WITH DRAINING ORANGE URINE. ON ROOM AIR, TOLERATED WELL. NEEDS ATTENDED. SAFETY MEASURES IN PLACE: BED LOCKED AND IN LOWEST POSITION, TRAY TABLE AND CALL LIGHT WITHIN EASY REACH, SIDE RAILS X 2. WILL ENDORSE KARAN TO CONTRACTS SPECIALIST.
--- NOTE | 2022-05-18 19:10 | NUR ---
RN opening notes Pt is sitting in bed accompanied by Pt's family. Pt is alert and orientedX4. On room air. No SOB. No S/S of distress noted. IV site at RFA# 20 is clean, intact and flushes well, SL. Safety precautions is maintained. Bed at low position, brakes locked, side rails upX2, hob elevated, and call light is within reach. Will continue to monitor.
--- NOTE | 2022-05-18 19:58 | NUR ---
RN notes Pt is complaining of abdpain 10/ on pain scale. Pt requesting pain meds. administered morphine 2 mg/iv/prn as ordered for pain. vs is stable. safety precautions is maintained. will continue to monitor. Addendum: 05/19/22 at 0657 by FROILAN ABARCA RN morphine 1 mg not 2 mg.
[2022-05-18 20:00] VITALS: BP 158/88
--- NOTE | 2022-05-18 20:00 | NUR ---
RN notes Received Pt with maguire cath inplaced. Pt requesting maguire cath to be remove. Explained risks and benefits. Pt keep refusing. Removed maguire cath. Pt is able to urinate in urinal.
--- NOTE | 2022-05-18 20:34 | NUR ---
RN notes Pt informed that Pt is diabetic and no order for blood sugar check. informed and notified Dr. Sher. Awaiting for order.
[2022-05-18] MEDS: LORAZEPAM INJ 2 MG/ML VIAL IV PRN (21:31)
--- NOTE | 2022-05-18 21:38 | NUR ---
RN notes Pt is feeling anxious and requesting ativan. administered ativan as ordered for anxiety. safety precautions is maintained. will continue to monitor.
--- NOTE | 2022-05-18 21:58 | NUR ---
RN notes Received ordered from Dr. Sher for moderate sliding scale achs. ordered carry out.
[2022-05-18] MEDS ORDERED: DEXTROSE 50%-WATER 50 ML DISP.SYRIN IV PRN (22:00)
[2022-05-18] MEDS: BLOOD SUGAR DIAGNOSTIC 1 EACH STRIP VI SCH (22:08)
[2022-05-18] MEDS: *INSULIN REGULAR(HUMULIN R)HUM 100 UNIT/ML VIAL SQ PRN (22:18)
[2022-05-18] MEDS: MAGNESIUM HYDROXIDE 30 ML UDC PO PRN (22:56)
--- NOTE | 2022-05-18 23:00 | NUR ---
RN notes Pt is having difficulty BM and requesting stool softener. administered milk of magnesia for BM as ordered. will continue to monitor.
[2022-05-18] MEDS: IV NS 0.9% 1,000 ML IV PRN (23:08)
[2022-05-18] MEDS: ZOLPIDEM TARTRATE 5 MG TABLET PO PRN (23:44)
[2022-05-19] MEDS: MORPHINE SULFATE INJ 2 MG/ML DISP.SYRIN IV PRN ×4 (02:10→17:45)
[2022-05-19] MEDS: LORAZEPAM INJ 2 MG/ML VIAL IV PRN ×3 (04:04→19:26)
--- NOTE | 2022-05-19 04:59 | NUR ---
RN notes Informed and notify Dr. Sher that Pt is having difficulty urinating. Also informed MD that Pt had maguire catherer at the beginning of shift. Pt refused maguire cath inplaced and requested maguire to be removed. Explained risks and benefits. Pt agitated easily. Pt keep refusing. ordered for maguire catherer insertion. Inserted maguire cath as ordered with RICKEY Tellez. Maguire cath is inplaced and draining tea color.
[2022-05-19] MEDS: BLOOD SUGAR DIAGNOSTIC 1 EACH STRIP VI SCH ×4 (06:31→21:33)
[2022-05-19] MEDS: INSULIN REGULAR, HUMAN 100 UNIT/ML 3 ML VIAL SQ PRN ×3 (06:34→17:41)
--- NOTE | 2022-05-19 06:44 | NUR ---
RN closing notes Pt is resting in bed comfortably. Pt is alert and orientedX4. On room air. No SOB. No S/S of distress noted. IV site at RFA# 20 is clean, intact and infusing well NS@ 75 ml/hr. Stephens cath is inplaced and draining yellow color. Routine meds were given as ordered. Kept Pt clean, dry and comfortable. Safety precautions is maintained. Bed at low position, brakes locked, side rails upX2, hob elevated, and call light is within reach. Will endorse to am nurse for KARAN. Addendum: 05/19/22 at 0653 by FROILAN ABARCA RN IV site at R hand#20.
[2022-05-19 07:00] VITALS: BP 149/87
[2022-05-19 07:10] LABS: BASOPHILS % (AUTO) 0.3 % (0.0-2.0); EOSINOPHILS % (AUTO) 0.3 % (0.0-6.0); HEMATOCRIT 38 % (39-51); HEMOGLOBIN 13.4 g/dL (13.5-17.5); LYMPHOCYTES # (AUTO) 1.2 K/uL (0.8-4.8); LYMPHOCYTES % (AUTO) 21.8 % (20.0-44.0); MEAN CORPUSCULAR HGB CONC 35 g/dl (31.0-36.0); MEAN CORPUSCULAR VOLUME 99 fL (80-96); MONOCYTES # (AUTO) 0.5 K/uL (0.1-1.30); NEUTROPHILS # (AUTO) 3.7 K/uL (1.8-8.9); NEUTROPHILS % (AUTO) 68.6 % (43.0-81.0); PLATELET COUNT (AUTO) 164 K/uL (150-450); RED BLOOD CELL COUNT(AUTO) 3.83 MIL/uL (4.5-6.0); WHITE BLOOD COUNT (AUTO) 5.3 K/uL (4.3-11.0)
[2022-05-19 07:17] LABS: ALBUMIN 3.4 g/dL (3.4-5.0); BILIRUBIN,TOTAL 0.8 mg/dL (0.2-1.0); CALCIUM, SERUM 8.4 mg/dL (8.5-10.1); MAGNESIUM 2.3 mg/dL (1.8-2.4); PHOSPHORUS 2.4 mg/dL (2.5-4.9); POTASSIUM 3.6 mmol/L (3.5-5.1); TOTAL PROTEIN, SERUM 6.6 g/dL (6.4-8.2)
--- NOTE | 2022-05-19 07:54 | NUR ---
RN OPENING NOTE- PT ASLEEP, EASILY AWAKENED, A/O X 4, ABLE TO MAKE NEEDS KNOWN. IV ACCESS ON THE RAC #20G, SL, C/D/I. MAINTAINED GODFREY DRAINING VIA GRAVITY WITH DRAINING CLEAR UA. ON ROOM AIR, TOLERATED WELL. SPOKE W SPOUSE VENKAT SHE IS REQUESTING UROLOGIST TO SEE HE . NOTIFIED MIYA CHILDRESS NP OF SITUATION. NEEDS ATTENDED. SAFETY MEASURES IN PLACE: BED LOCKED AND IN LOWEST POSITION, TRAY TABLE AND CALL LIGHT WITHIN EASY REACH, SIDE RAILS X 2. MONITOR / ASSIST. PAIN MANAGEMENT.
[2022-05-19] MEDS: PANTOPRAZOLE 40 MG VIAL IV SCH (08:37)
[2022-05-19] MEDS: LOSARTAN POTASSIUM 50 MG TABLET PO SCH (08:37)
[2022-05-19 08:45] VITALS: BP 149/87
--- NOTE | 2022-05-19 10:12 | NUR ---
RN NOTE- PT ANXIOUS, RESTLESS. ATIVAN 1 MG IVP ADMINISTERED
--- NOTE | 2022-05-19 10:19 | NUR ---
SW Consult: SW consult requested for patient possible substance abuse. Patient was brought in due to Abdominal Pain. Patient presented with a flat affect. Patient presents alert and oriented x3 (self,place,time). Patient reported currently he is in pain and that his current pain on the scale from 1-10 is 8. Patient stated when he urinates he has pain. Patient's Simin ([phone]) was present and wanted her to be present while assessing. Patient lives at [address] [place] [address]; ([phone]) with . SW assessed for substance abuse. Patient stated that for the past 25 years he has been clean and has been in and out of treatment programs. He reported that he recently began to drink because his boss a week ago. He was born and raised in [place], [place]. 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 He reported he has two daughters and one son. Patient expressed that he is feeling anxious about his situation. SW assessed for suicidal or homicidal, pt denied. SW assessed any hallucinations visual/auditory, pt denied. Pt denied any use of drugs. SW offered pt resources and pt was accepting of substance abuse referrals. Patient was requesting to speak to Urologist. SW notified RICKEY Hamilton of this. DC Plan: Patient will dc back home when stable [address] [place] [address]; ([phone]). Substance Abuse resources provided included: [facility] Substance Abuse Self-Helpline ([facility]) ; [facility] [address] [facility] [place] [address] ; [facility] [address] [facility] [address] ; [facility] [address] [facility] [address] ; [facility] [place] [address] [facility] [address] ; [facility] [address] [facility] [address] ; [facility] [address] [facility] [address] ; [facility] Substance Abuse Helpline(SAS)-[facility] ; [facility] ; [facility] [place]; [facility]; [facility] [place]; [facility] [place]; [facility] [place]; [facility] [place]; [facility]; [facility], [facility] [place]; Alcoholics Anonymous [facility]; [facility] ; Marijuana Anonymous [facility]; Narcotics Anonymous www.na.org;
[2022-05-19] MEDS ORDERED: LACTULOSE 10 G/15 ML UDC (PYXIS) PO ONE (13:00)
[2022-05-19] MEDS: TAMSULOSIN 0.4 MG CAP.SR.24H PO SCH ×2 (13:29→21:08)
[2022-05-19] MEDS ORDERED: TRAMADOL HCL 50 MG TABLET PO PRN (13:30)
[2022-05-19] MEDS: CEFTRIAXONE 2 G in IV NS 0.9% 100 ML IV SCH (14:56)
[2022-05-19] MEDS ORDERED: NEUTRA PHOS 1 POWD.PACKET NG ONE (16:00)
[2022-05-19] MEDS ORDERED: IV NS 0.9% 250 ML IV ONE (16:34)
[2022-05-19] MEDS ORDERED: IOHEXOL-300 100 ML VIAL IV ONE (16:34)
[2022-05-19 16:39] VITALS: BP 151/96
--- NOTE | 2022-05-19 18:34 | NUR ---
RN OPENING NOTE- A/O X 4, ABLE TO MAKE NEEDS KNOWN. IV ACCESS ON THE LAC #20G, SL, C/D/I. MAINTAINED GODFREY DRAINING VIA GRAVITY WITH DRAINING CLEAR UA. ON ROOM AIR, TOLERATED WELL. CT PELVIS / ABD DONE. . NEEDS ATTENDED. SAFETY MEASURES IN PLACE: BED LOCKED AND IN LOWEST POSITION, TRAY TABLE AND CALL LIGHT WITHIN EASY REACH, SIDE RAILS X 2. MONITOR / ASSIST. PAIN MANAGEMENT. Addendum: 05/19/22 at 1837 by JASPER SALMERON RN ABOVE IS CLOSING NOTE-
--- NOTE | 2022-05-19 19:15 | NUR ---
RN opening notes Pt is sitting in bed accompanied by Pt's . Pt is alert and orientedX4. On room air. No SOB. No S/S of distress noted. IV site at LAC# 20 is clean, intact and infusing well NS@ 75 ml/hr. Safety precautions is maintained. Bed at low position, brakes locked, side rails upX2, hob elevated, and call light is within reach. Will continue to monitor.
--- NOTE | 2022-05-19 19:26 | NUR ---
RN notes Pt is feeling anxious and requesting ativan. administered ativan/iv/prn as ordered for anxiety. safety precautions is maintained. will continue to monitor.
[2022-05-19 20:00] VITALS: BP 117/65
[2022-05-19] MEDS: *INSULIN REGULAR(HUMULIN R)HUM 100 UNIT/ML VIAL SQ PRN (21:34)
[2022-05-19] MEDS: ZOLPIDEM TARTRATE 5 MG TABLET PO PRN (23:17)
--- NOTE | 2022-05-19 23:18 | NUR ---
RN notes Pt is having insomnia and requesting sleeping pill. administered ambien/po/prn as ordered for sleeping. safety precautions is maintained. will continue to monitor.
[2022-05-20] MEDS: MORPHINE SULFATE INJ 2 MG/ML DISP.SYRIN IV PRN ×4 (00:26→21:47)
[2022-05-20] MEDS: LORAZEPAM INJ 2 MG/ML VIAL IV PRN ×3 (05:24→18:24)
[2022-05-20 05:53] LABS: BASOPHILS % (AUTO) 0.9 % (0.0-2.0); EOSINOPHILS % (AUTO) 3.5 % (0.0-6.0); HEMATOCRIT 38 % (39-51); HEMOGLOBIN 13.1 g/dL (13.5-17.5); LYMPHOCYTES % (AUTO) 31.2 % (20.0-44.0); MEAN CORPUSCULAR HGB CONC 34 g/dl (31.0-36.0); MEAN CORPUSCULAR VOLUME 99 fL (80-96); MONOCYTES # (AUTO) 0.3 K/uL (0.1-1.30); NEUTROPHILS # (AUTO) 1.8 K/uL (1.8-8.9); NEUTROPHILS % (AUTO) 56.4 % (43.0-81.0); PLATELET COUNT (AUTO) 127 K/uL (150-450); RED BLOOD CELL COUNT(AUTO) 3.84 MIL/uL (4.5-6.0); WHITE BLOOD COUNT (AUTO) 3.1 K/uL (4.3-11.0)
[2022-05-20 06:04] LABS: CALCIUM, SERUM 8.4 mg/dL (8.5-10.1); CREATININE 0.8 mg/dL (0.6-1.3); POTASSIUM 3.6 mmol/L (3.5-5.1)
[2022-05-20] MEDS: BLOOD SUGAR DIAGNOSTIC 1 EACH STRIP VI SCH ×4 (06:26→21:29)
[2022-05-20 07:00] VITALS: BP 130/69
--- NOTE | 2022-05-20 07:50 | NUR ---
RN closing notes Pt is resting in bed comfortably. Pt is alert and orientedX4. On room air. No SOB. No S/S of distress noted. VS is stable. IV site at LAC# 20 is clean, intact and SL. Stephens cath is inplaced and draining yellow color. Routine meds were given as ordered. Kept Pt clean, dry and comfortable. Safety precautions is maintained. Bed at low position, brakes locked, side rails upX2, hob elevated, and call light is within reach. Will endorse to am nurse for KARAN.
--- NOTE | 2022-05-20 08:50 | NUR ---
RN NOTES PATIENT CARE TRANSFERRED FROM [facility] TO [facility]. PATIENT A/Ox4 NO S/S OF PAIN OR DISCOMFORT. WILL CONTINUE TO MONITOR. PATIENT
[2022-05-20] MEDS: PANTOPRAZOLE 40 MG VIAL IV SCH (09:00)
[2022-05-20] MEDS: LOSARTAN POTASSIUM 50 MG TABLET PO SCH (09:00)
--- NOTE | 2022-05-20 09:30 | NUR ---
RN NOTES PATIENT COMPLAINED OF PAIN 8/10, OF ABDOMEN. REQUESTED PRN MORPHINE. WILL CONTINUE TO MONITOR.
--- NOTE | 2022-05-20 12:13 | NUR ---
RN NOTES PATIENT REQUESTED PRN ATIVAN. EXPLAINED TO PATIENT RISK AND BENEFITS. VERBALIZED UNDERSTANDING PRN ATIVAN ADMINISTERED. WILL CONTINUE TO MONITOR.
[2022-05-20] MEDS: PIPERACILLIN /TAZOBACTAM 3.375 G in IV D5W 50 ML IV SCH ×3 (12:39→23:12)
[2022-05-20] MEDS: CEFTRIAXONE 2 G in IV NS 0.9% 100 ML IV SCH (13:41)
--- NOTE | 2022-05-20 15:20 | NUR ---
RN NOTES PATIENT REQUESTED STRONGER PAIN MEDICATION, J[facility]ON CHILDRESS MESSAGED. AWAITING ANY NEW ORDER. PATIENT AND ASKING IF DR. GREGORY IS COMING TO SEE PATIENT, JHON CHILDRESS ASKED WHEN CONSULT WILL BE DONE PATIENT WANTS TO EAT SOMETHING. WILL CONTINUE TO MONITOR.
[2022-05-20 16:22] VITALS: BP 130/98
--- NOTE | 2022-05-20 18:42 | NUR ---
MS RN CLOSING NOTES PATIENT RESTING IN BED, A/Ox4, ON ROOM AIR. NO S/S OF RESPIRATORY DISTRESS. IV ACCESS LAC #20G SL. INTACT AND PATENT. NO C/O OF DISTRESS OR DISCOMFORT. PATIENT ON BED REST, AMBULATE WITH ASSIST. CONTINENT HAS BATHROOM PRIVILEGE. SKIN INTACT. HAS GODFREY CATH, DRAINING CANDELARIA/TEA COLORED URINE. SAFETY MEASURES MAINTAINED: BED LOCKED AND IN LOWEST POSITION, HOB ELEVATED, SIDE RAILS UPx2, CALL LIGHT WITHIN REACH. WILL ENDORSE TO NEXT SHIFT ANY KARAN.
--- NOTE | 2022-05-20 19:35 | NUR ---
MS RN NOTES RECEIVED ON BED SLEEPING,BREATHING EVEN AND UNLABORED,VISITOR AT BEDSIDE.SALINE LOCK LEFT AC INTACT AND PATENT.GODFREY CATH IN PLACE DRAINS CLEAR YELLOW OUTPUT.WILL MONITOR FOR ETOH INTOXICATION.CALL LIGHT IN REACH,NEEDS ANTICIPATED.
[2022-05-20 20:00] VITALS: BP 132/88
[2022-05-20] MEDS: TAMSULOSIN 0.4 MG CAP.SR.24H PO SCH (21:26)
[2022-05-20] MEDS: MAGNESIUM HYDROXIDE 30 ML UDC PO PRN (21:26)
--- NOTE | 2022-05-20 21:26 | NUR ---
MS RN NOTES C/O CONSTIPATION,MOM 30ML PO GIVEN PER PATIENT REQUEST.WILL MONITOR FOR BOWEL MOVEMENT.
[2022-05-20] MEDS: *INSULIN REGULAR(HUMULIN R)HUM 100 UNIT/ML VIAL SQ PRN (21:39)
--- NOTE | 2022-05-20 21:47 | NUR ---
MS RN NOTES PAIN MANAGEMENT C/O GENERALIZED PAIN 8/10 ON PAIN SCALE, MORPHINE 1MG IV GIVEN ORDERED AND PER PATIENT REQUEST.VITAL SIGNS STABLE.
--- NOTE | 2022-05-20 22:00 | NUR ---
MS RN NOTES ACCU-CHECK BLOOD SUGAR CHECK 184,COVERED WITH HUMULIN R 3 UNITS PER SLIDING SCALE,GIVEN SQ ON RIGHT DELTOID.SNACKS AT BEDSIDE.
[2022-05-20] MEDS: ZOLPIDEM TARTRATE 5 MG TABLET PO PRN (23:30)
--- NOTE | 2022-05-20 23:30 | NUR ---
MS RN NOTES C/O INSOMNIA,AMBIEN 5MG PO GIVEN PER PATIENT REQUEST,WITH ORDER.
[2022-05-21] MEDS: IV NS 0.9% 1,000 ML IV PRN (03:30)
[2022-05-21] MEDS: LORAZEPAM INJ 2 MG/ML VIAL IV PRN (03:52)
--- NOTE | 2022-05-21 03:52 | NUR ---
MS RN NOTES AWAKE,ANXIOUS,ATIVAN 1MG IV GIVEN PER PATIENT REQUEST,WITH ORDER PRN FOR ANXIETY.VITAL SIGNS STABLE.
[2022-05-21] MEDS: PIPERACILLIN /TAZOBACTAM 3.375 G in IV D5W 50 ML IV SCH (05:25)
[2022-05-21] MEDS: BLOOD SUGAR DIAGNOSTIC 1 EACH STRIP VI SCH (05:27)
[2022-05-21] MEDS: MORPHINE SULFATE INJ 2 MG/ML DISP.SYRIN IV PRN (05:37)
--- NOTE | 2022-05-21 05:37 | NUR ---
MS RN NOTES PAIN MANAGEMENT C/O GENERALIZED PAIN 8/10ON PAIN SCALE,MORPHINE 1MG IV GIVEN ORDERED.
[2022-05-21] MEDS: INSULIN REGULAR, HUMAN 100 UNIT/ML 3 ML VIAL SQ PRN (05:46)
--- NOTE | 2022-05-21 05:46 | NUR ---
MS RN NOTES ACCU-CHECK BLOOD SUGAR CHECK 235MG/DL,COVERED WITH HUMULIN R 6 UNITS PER SLIDING SCALE.
--- NOTE | 2022-05-21 06:56 | NUR ---
MS RN NOTES ON BED SLEEPING,PAIN IMPROVED WITH PAIN MANAGEMENT.IN NO ACUTE DISTRESS.
[2022-05-21 07:39] LABS: BASOPHILS % (AUTO) 0.6 % (0.0-2.0); EOSINOPHILS % (AUTO) 4.4 % (0.0-6.0); HEMATOCRIT 38 % (39-51); LYMPHOCYTES # (AUTO) 1.1 K/uL (0.8-4.8); LYMPHOCYTES % (AUTO) 34.6 % (20.0-44.0); MEAN CORPUSCULAR HGB CONC 35 g/dl (31.0-36.0); MEAN CORPUSCULAR VOLUME 99 fL (80-96); MONOCYTES # (AUTO) 0.3 K/uL (0.1-1.30); MONOCYTES % (AUTO) 9.5 % (2.0-12.0); NEUTROPHILS # (AUTO) 1.6 K/uL (1.8-8.9); NEUTROPHILS % (AUTO) 50.9 % (43.0-81.0); PLATELET COUNT (AUTO) 137 K/uL (150-450); RED BLOOD CELL COUNT(AUTO) 3.82 MIL/uL (4.5-6.0); WHITE BLOOD COUNT (AUTO) 3.1 K/uL (4.3-11.0)
[2022-05-21 07:49] LABS: ALBUMIN 3.1 g/dL (3.4-5.0); BILIRUBIN,TOTAL 0.8 mg/dL (0.2-1.0); CALCIUM, SERUM 8.6 mg/dL (8.5-10.1); CREATININE 0.9 mg/dL (0.6-1.3); POTASSIUM 3.7 mmol/L (3.5-5.1); TOTAL PROTEIN, SERUM 6.4 g/dL (6.4-8.2)
[2022-05-21 08:00] VITALS: BP 119/61
--- NOTE | 2022-05-21 08:13 | NUR ---
RN OPENING NOTE RECEIVED PATIENT IN BED AO x 4, ABLE TO RESPONDS PHYSICAL STIMULI. RESPIRATORY EVEN AND UNLABORED IN ROOM AIR. IN NO ACUTE DISTRESS OBSERVED. SKIN IS WARM TO TOUCH, KEEP CLEAN/DRY. KEPT ELEVATED HOB FOR ASPIRATION PRECAUTION/ENSURE AIRWAY, ALSO LOWEST BED POSITIONED. BED ALARM IS ON AT ALL THE TIME FOR SAFETY. CALL LIGHT WITHIN REACH, WILL CONTINUE TO MONITOR.
[2022-05-21] MEDS: LOSARTAN POTASSIUM 50 MG TABLET PO SCH (09:00)
--- NOTE | 2022-05-21 09:00 | NUR ---
PATIENT REMOVED GODFREY CATHETER AND URINATED CLEAR CANDELARIA IN COLORED URINE. WILL CONTINUE TO MONITOR.
[2022-05-21] MEDS: PANTOPRAZOLE 40 MG VIAL IV SCH (09:01)
--- NOTE | 2022-05-21 11:49 | NUR ---
PATIENT DISCHARGE TO HOME, AND GIVEN DISCHARGE INSTRUCTION INCLUDE ABX/AUGMENTIN. REMOVED IV LINE AND ID BAND, OFFERED CT IMAGES BEFORE PATIENT LEAVE FACILITY, IN STABLE CONDITION WITHOUT DISTRESS.
[2022-05-21] MEDS ORDERED: PIPERACILLIN /TAZOBACTAM 3.375 G in IV D5W 100 ML IV SCH (13:00)
[2022-05-21] MEDS ORDERED: Tamsulosin PO (13:46)
[2022-05-21] MEDS ORDERED: TAMS-12 PO (13:46)
[2022-05-21] MEDS ORDERED: AMOX-430 PO (13:46)
== END 2022-05-21 11:30 | disposition home or self-care (01) | DRG 917 ==
LOC: ER 19:35 → MED 05-18 14:09
PROVIDERS: ADMIT Nurse Practitioner Acute Care; ATTEND Nurse Practitioner Acute Care
DX: T42.6X1A Poisoning by other antiepileptic and sedative-hypnotic drugs, accidental (unintentional), initial encounter (principal); G92.9 Unspecified toxic encephalopathy; K57.80 Diverticulitis of intestine, part unspecified, with perforation and abscess without bleeding; F10.129 Alcohol abuse with intoxication, unspecified; N30.91 Cystitis, unspecified with hematuria; Y90.8 Blood alcohol level of 240 mg/100 ml or more; I10 Essential (primary) hypertension; Z79.899 Other long term (current) drug therapy; E11.9 Type 2 diabetes mellitus without complications; F32.A Depression, unspecified; E83.119 Hemochromatosis, unspecified; F17.200 Nicotine dependence, unspecified, uncomplicated; Z79.84 Long term (current) use of oral hypoglycemic drugs; T51.0X1A Toxic effect of ethanol, accidental (unintentional), initial encounter; Y92.009 Unspecified place in unspecified non-institutional (private) residence as the place of occurrence of the external cause; R79.89 Other specified abnormal findings of blood chemistry; R74.01 Elevation of levels of liver transaminase levels; R33.9 Retention of urine, unspecified; K66.8 Other specified disorders of peritoneum; F11.10 Opioid abuse, uncomplicated
CPT/HCPCS: 36415; 70460-TC; 71045-TC; 72125-TC; 72193-TC; 80048-TC; 80053-TC; 80076-TC; 81001; 82962-TC; 83690-TC; 83735-TC; 84100-TC; 85025-TC; 85730-TC; 87081-TC; A4223; C9113; C9803; G0378; G0480; J0696; J1815; J2060; J2270; J2405; J2543; J3490; J7030; J7040; J7050; J7060; Q9967

== ENCOUNTER 2022-11-05 20:38 | Emergency (ER) | payer BC ==
[~2022-11-05] VITALS: Ht 182.9 cm; Wt 99.8 kg
[~2022-11-05 20:38] MED LIST changes: +AMOX-430 PO; -CHLO10CA PO; +CLON0.1T PO; +GABA600T12 PO; +GLIP5TAB13 PO; -LORA-259 PO; +LOSA100T31 PO; +METF-440 PO; +QUET200T PO; +TAMS-12 PO; +TRAM50TA2 PO; +Tamsulosin PO
[2022-11-05 21:50] LABS: BASOPHILS % (AUTO) 0.7 % (0.0-2.0); EOSINOPHILS % (AUTO) 0.2 % (0.0-6.0); HEMATOCRIT 41 % (39-51); HEMOGLOBIN 13.7 g/dL (13.5-17.5); LYMPHOCYTES % (AUTO) 49.8 % (20.0-44.0); MEAN CORPUSCULAR HEMOGLOBIN 31 PG (26.0-33.0); MEAN CORPUSCULAR HGB CONC 34 g/dl (31.0-36.0); MEAN CORPUSCULAR VOLUME 91 fL (80-96); MONOCYTES # (AUTO) 0.4 K/uL (0.1-1.30); MONOCYTES % (AUTO) 6.2 % (2.0-12.0); NEUTROPHILS # (AUTO) 2.6 K/uL (1.8-8.9); NEUTROPHILS % (AUTO) 43.1 % (43.0-81.0); PLATELET COUNT (AUTO) 198 K/uL (150-450); RED BLOOD CELL COUNT(AUTO) 4.46 MIL/uL (4.5-6.0); RED CELL DISTRIBUTION WIDTH 14.1 % (11.5-15.0)
[2022-11-05] MEDS ORDERED: KETOROLAC TROMETHAMINE INJ 60 MG/2 ML VIAL IM ONE (22:00)
[2022-11-05 22:10] LABS: CALCIUM, SERUM 8.7 mg/dL (8.5-10.1); CARBON DIOXIDE 21 mmol/L (21-32); CHLORIDE 109 mmol/L (98-107); CREATININE 0.8 mg/dL (0.6-1.3); GLUCOSE 143 mg/dL (74-106); POTASSIUM 3.4 mmol/L (3.5-5.1); SODIUM SERUM 147 mmol/L (136-145); UREA NITROGEN, BLOOD 6 mg/dL (7-18)
[2022-11-05 22:14] LABS: ALANINE AMINOTRANSFERASE 50 U/L (12-78); ALBUMIN 3.9 g/dL (3.4-5.0); ALCOHOL, BLOOD 323 mg/dL (0-10); ALKALINE PHOSPHATASE 79 U/L (46-116); ASPARTATE AMINOTRANSFERASE 32 U/L (15-37); BILIRUBIN,DIRECT 0.1 mg/dL (0.0-0.2); BILIRUBIN,TOTAL 0.3 mg/dL (0.2-1.0); SALICYLATE 4.8 mg/dL (2.8-20.0); TOTAL PROTEIN, SERUM 7.1 g/dL (6.4-8.2)
[2022-11-05 22:17] LABS: ACETAMINOPHEN <10 ug/ml (10-30)
[2022-11-05] MEDS ORDERED: KETOROLAC TROMETHAMINE INJ 30 MG/ML VIAL ONE (22:32)
[2022-11-06] MEDS ORDERED: MORPHINE SULFATE INJ 4 MG/ML DISP.SYRIN ONE (01:49)
[2022-11-06] MEDS ORDERED: MORPHINE SULFATE INJ 2 MG/ML DISP.SYRIN IM ONE (02:00)
[2022-11-06 02:34] VITALS: BP 101/128; TEMP 98.2; O2SAT 97
[2022-11-06 02:49] LABS: APPEARANCE,URINE CLEAR (CLEAR); BILIRUBIN,URINE NEGATIVE (NEGATIVE); BLOOD, URINE NEGATIVE Ery/uL (NEGATIVE); COLOR,URINE YELLOW (YELLOW); KETONES,URINE TRACE mg/dL (NEGATIVE); LEUKOCYTE ESTERASE ,URINE NEGATIVE (NEGATIVE); NITRITE, URINE NEGATIVE (NEGATIVE); PROTEIN,URINE NEGATIVE (NEGATIVE); UGLUCOSE NEGATIVE (NEGATIVE); UROBILINOGEN,URINE 0.2 EU/dL (0.2)
[2022-11-06 03:02] LABS: AMPHETAMINE, URINE NEGATIVE (NEGATIVE); BARBITURATE, URINE NEGATIVE (NEGATIVE); CANNABINOID, URINE NEGATIVE (NEGATIVE); COCCAINE, URINE NEGATIVE (NEGATIVE); PHENCYCLIDINE SCREEN,URINE NEGATIVE (NEGATIVE)
[2022-11-06 03:17] LABS: BENZODIAZEPINE, URINE POSITIVE (NEGATIVE); OPIATE, URINE POSITIVE (NEGATIVE)
== END 2022-11-06 02:34 | disposition home or self-care (01) ==
LOC: ER 20:42
DX: F10.129 Alcohol abuse with intoxication, unspecified (principal); M25.561 Pain in right knee; I10 Essential (primary) hypertension; Z98.890 Other specified postprocedural states; Z79.899 Other long term (current) drug therapy; Y90.8 Blood alcohol level of 240 mg/100 ml or more
CPT/HCPCS: 99284; 96372 ×2; 73564; 85025; 80048; 80076; 81003; 36415; 80143; 80320; 80307; J1885; J2270; G0480

== ENCOUNTER 2023-05-22 09:54 | Emergency (ER) | payer BC ==
[~2023-05-22] VITALS: Ht 180.3 cm; Wt 108.9 kg
[2023-05-22 10:42] LABS: BASOPHILS # (AUTO) 0.1 K/uL (0.0-0.2); BASOPHILS % (AUTO) 1.4 % (0.0-2.0); EOSINOPHILS # (AUTO) 0.1 K/uL (0.0-0.7); EOSINOPHILS % (AUTO) 1.3 % (0.0-6.0); HEMATOCRIT 39 % (39-51); HEMOGLOBIN 13.2 g/dL (13.5-17.5); LYMPHOCYTES # (AUTO) 3.1 K/uL (0.8-4.8); LYMPHOCYTES % (AUTO) 44.8 % (20.0-44.0); MEAN CORPUSCULAR HEMOGLOBIN 32 PG (26.0-33.0); MEAN CORPUSCULAR HGB CONC 34 g/dl (31.0-36.0); MEAN CORPUSCULAR VOLUME 92 fL (80-96); MONOCYTES # (AUTO) 0.3 K/uL (0.1-1.30); MONOCYTES % (AUTO) 3.7 % (2.0-12.0); NEUTROPHILS # (AUTO) 3.4 K/uL (1.8-8.9); NEUTROPHILS % (AUTO) 48.8 % (43.0-81.0); PLATELET COUNT (AUTO) 198 K/uL (150-450); RED BLOOD CELL COUNT(AUTO) 4.19 MIL/uL (4.5-6.0); RED CELL DISTRIBUTION WIDTH 13.9 % (11.5-15.0)
[2023-05-22 11:06] LABS: ALBUMIN 3.4 g/dL (3.4-5.0); BILIRUBIN,DIRECT 0.2 mg/dL (0.0-0.2); BILIRUBIN,TOTAL 0.4 mg/dL (0.2-1.0); CALCIUM, SERUM 8.2 mg/dL (8.5-10.1); CREATININE 0.7 mg/dL (0.6-1.3); POTASSIUM 3.7 mmol/L (3.5-5.1); TOTAL PROTEIN, SERUM 6.8 g/dL (6.4-8.2)
[2023-05-22 11:07] LABS: SALICYLATE 2.2 mg/dL (2.8-20.0)
[2023-05-22 11:50] LABS: APPEARANCE,URINE CLEAR (CLEAR); BILIRUBIN,URINE NEGATIVE (NEGATIVE); BLOOD, URINE NEGATIVE Ery/uL (NEGATIVE); COLOR,URINE YELLOW (YELLOW); KETONES,URINE NEGATIVE (NEGATIVE); LEUKOCYTE ESTERASE ,URINE NEGATIVE (NEGATIVE); NITRITE, URINE NEGATIVE (NEGATIVE); PH,URINE 5.5 (5.0-8.0); PROTEIN,URINE NEGATIVE (NEGATIVE); UGLUCOSE 2+ mg/dL (NEGATIVE); UROBILINOGEN,URINE 0.2 EU/dL (0.2)
[2023-05-22 11:56] LABS: ADD URINE CULTURE NO; BACTERIA,URINE Rare /HPF (None Seen); RBC,URINE 0-2 /HPF (0-2); SQUAMOUS EPITHELIAL CELL,UR Few /HPF (None Seen); WBC,URINE 0-2 /HPF (0-3)
[2023-05-22 12:10] LABS: AMPHETAMINE, URINE NEGATIVE (NEGATIVE); BARBITURATE, URINE NEGATIVE (NEGATIVE); BENZODIAZEPINE, URINE POSITIVE (NEGATIVE); CANNABINOID, URINE NEGATIVE (NEGATIVE); COCCAINE, URINE NEGATIVE (NEGATIVE); OPIATE, URINE NEGATIVE (NEGATIVE); PHENCYCLIDINE SCREEN,URINE NEGATIVE (NEGATIVE)
[2023-05-22 15:40] VITALS: BP 122/76; TEMP 98.2; O2SAT 98
== END 2023-05-22 15:41 | disposition home or self-care (01) ==
LOC: ER 10:11
DX: F10.229 Alcohol dependence with intoxication, unspecified (principal); I10 Essential (primary) hypertension; E11.9 Type 2 diabetes mellitus without complications; Z79.84 Long term (current) use of oral hypoglycemic drugs; Z79.899 Other long term (current) drug therapy; Y90.8 Blood alcohol level of 240 mg/100 ml or more
CPT/HCPCS: 36415; 80048-TC; 80076-TC; 81001; 85025-TC; G0480

== ENCOUNTER 2024-08-30 01:30 | Emergency (ER) | payer BC ==
[~2024-08-30] VITALS: Ht 182.9 cm; Wt 110.7 kg
[2024-08-30 02:43] VITALS: BP 122/77; TEMP 98; O2SAT 99
== END 2024-08-30 02:44 | disposition home or self-care (01) ==
LOC: ER 01:32
DX: F10.129 Alcohol abuse with intoxication, unspecified (principal); E11.9 Type 2 diabetes mellitus without complications; I10 Essential (primary) hypertension; F19.10 Other psychoactive substance abuse, uncomplicated; Z79.84 Long term (current) use of oral hypoglycemic drugs; Z79.899 Other long term (current) drug therapy; Z86.59 Personal history of other mental and behavioral disorders; Y90.9 Presence of alcohol in blood, level not specified
CPT/HCPCS: 82962-TC